=== PATIENT | female | born 1975 | race Caucasian/White ===

== ENCOUNTER 2016-07-02 21:45 | Emergency (ER) | payer OTHER ==
[~2016-07-02] VITALS: Ht 167.6 cm; Wt 87.3 kg
[2016-07-03 02:53] LABS: HEMATOCRIT 32.6 % (36.0-46.0); MCH 31.2 PG (29.0-34.0); MCHC 32.5 G/DL (30.0-36.0); MCV 95.9 FL (83-99); MEAN PLAT.VOLUME 8.7 uM^3 (9.5-12.4); PLATELET COUNT 297 K/uL (156-360); RBC DIS.WIDTH-CV 12.7 % (11.8-14.6); RBC DIS.WIDTH-SD 45.1 % (39-53); WHITE BLOOD COUNT 12.4 K/uL (4.1-10.2)
[2016-07-03 03:05] LABS: CHLORIDE 108 mEq/L (99-109); POTASSIUM 4.1 mEq/L (3.7-5.4); SODIUM 138 mEq/L (136-147)
[2016-07-03 03:07] LABS: GLUCOSE 100 mg/dL (70-99)
[2016-07-03 03:08] LABS: ANION GAP 8 MEQ/L (2-14)
[2016-07-03 03:10] LABS: GFR ESTIMATE (CALCULATED) 44 mL/min/
[2016-07-03 03:11] LABS: UREA NITROGEN (BUN) 22 mg/dL (9-23)
[2016-07-03 03:22] VITALS: BP 120/61
== END 2016-07-03 03:25 | disposition short-term general hospital (02) ==
LOC: EME 21:45 → EDBD 21:45 → EME 07-03 03:25
PROVIDERS: Emergency Medicine
PROC: 0SSGXZZ Reposition Left Ankle Joint, External Approach (ICD-10-PCS; principal; 2016-07-02)
DX: S82.52XA Displaced fracture of medial malleolus of left tibia, initial encounter for closed fracture (principal); S82.62XA Displaced fracture of lateral malleolus of left fibula, initial encounter for closed fracture; S89.392A Other physeal fracture of lower end of left fibula, initial encounter for closed fracture; S89.192A Other physeal fracture of lower end of left tibia, initial encounter for closed fracture; V00.121A Fall from non-in-line roller-skates, initial encounter; Y93.51 Activity, roller skating (inline) and skateboarding
CPT/HCPCS: 73590; 73700; 80048; 85027; 99281; 99285; J2270; J2405; J3010; J7050